=== PATIENT | female | born 1945 | race Caucasian/White ===

== ENCOUNTER 2024-10-10 06:26 | Day surgery (SDC) | payer OTHER, SELFPAY | END 2024-10-10 13:46 | disposition home or self-care (01) | LOC: GI 06:26 | PROVIDERS: ATTENDING PHYSICIAN Internal Medicine Gastroenterology | DX: K50.00 Crohn's disease of small intestine without complications (principal); D12.2 Benign neoplasm of ascending colon; D12.4 Benign neoplasm of descending colon; K57.30 Diverticulosis of large intestine without perforation or abscess without bleeding; K64.8 Other hemorrhoids | CPT/HCPCS: 45380; 88305 ==

== ENCOUNTER 2024-12-04 07:48 | Day surgery (SDC) | payer OTHER, SELFPAY ==
[2024-12-04 08:00] VITALS: BP 167/75
[2024-12-04 08:17] VITALS: BP 167/75
[2024-12-04 08:30] VITALS: BMI 22.9
[2024-12-04 10:51] VITALS: BP 113/70
[2024-12-04 11:06] VITALS: BP 132/72
--- NOTE | 2024-12-04 11:08 | ITS.CL.PACE ---
Cleaning Validation Consultant - Pacemaker Implant
Pacemaker Implant
Procedure Report:
PACEMAKER GENERATOR CHANGE
Date of Procedure: 12/04/2024
Primary Care Provider: Dr Primo Davis
PROCEDURES:
1. Removal of dual chamber PPM generator at [facility]
2. Implant of new dual chamber PPM generator
INDICATION FOR PROCEDURE:
1. PPM generator at [facility]
2. 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
The patient was prepped and draped in sterile fashion. Lidocaine with epi was used for local anesthesia. An incision was made along the previous incision and the device and leads were carefully dissected from the pocket. Hemostasis was obtained
with electrocautery. The leads were from the device header and tested using an external analyzer. The pocket was liberally irrigated with antibiotic solution. Once testing (see below) showed adequate and stable function, the leads were
connected to the generator header and the leads and generator were placed within the pocket. The pocket was closed in the typical fashion.
EXPLANTED PPM GENERATOR:
[employer] [id number], SN: [id number]
IMPLANTED PPM GENERATOR:
[employer] 2272, SN: [id number]
RETAINED LEADS:
RA: [employer] [id number], SN: [id number], RAA
RV: [employer] 52, SN: [id number], RV apical septum
DEVICE TESTING:
Sensing: RA 1.1 mV, RV 6 mV
Capture: RA 0.75 V @ 0.4ms, RV 1 V @ 0.4ms
Ohms: RA 408, RV 380
FINAL PROGRAMMING
Duncan Pacing: DDD 70 - 120 ppm
COMPLICATIONS:
None
CONCLUSIONS:
1. Successful explant of dual chamber permanent pacemaker
2. Successful implant of dual chamber permanent pacemaker
RECOMMENDATIONS:
1. In-Office wound check in 7-10 days.
Copy to: Dr Primo Davis
[2024-12-04 11:21] VITALS: BP 141/79
[2024-12-04 11:36] VITALS: BP 133/78
== END 2024-12-04 12:06 | disposition home or self-care (01) ==
LOC: CATH 07:48
PROVIDERS: ATTENDING PHYSICIAN Internal Medicine Cardiovascular Disease; FAMILY PHYSICIAN Student in an Organized Health Care Education/Training Program
DX: Z45.010 Encounter for checking and testing of cardiac pacemaker pulse generator [battery] (principal); I44.1 Atrioventricular block, second degree
CPT/HCPCS: 33228; C1785